=== PATIENT | female | born 1950 | race Caucasian/White ===

== ENCOUNTER 2018-07-15 10:06 | Day surgery (SDC) | payer BC, OTHER ==
[~2018-07-15] VITALS: Ht 162.6 cm; Wt 113.4 kg
[2018-07-15] MEDS ORDERED: BACITRACIN ZINC 15 GM TOPICAL OINTMENT TP ONE (12:55)
[2018-07-15] MEDS ORDERED: SUCCINYLCHOLINE CHLORIDE 20 MG/ML(QUELICIN) IVP ONE (12:55)
[2018-07-15] MEDS ORDERED: LEVOFLOXACIN 500 MG/D5W 100 ML PIGGYBACK IV ONE (12:55)
[2018-07-15] MEDS ORDERED: ROCURONIUM BROMIDE 10 MG/ML (ZEMURON) IV ONE (12:55)
[2018-07-15] MEDS ORDERED: MIDAZOLAM HCL 5 MG/5 ML VIAL IVP ONE (12:55)
[2018-07-15] MEDS ORDERED: SEVOFLURANE 15 MIN GAS INH ONE (12:55)
[2018-07-15] MEDS ORDERED: EPINEPHrine 1 MG/ML AMP IV ONE (12:55)
[2018-07-15] MEDS ORDERED: MUPIROCIN 2% TOPICAL OINTMENT 22 GM TP ONE (12:55)
[2018-07-15] MEDS ORDERED: LIDOCAINE/EPI 1% 1:100000 20 ML VIAL INJ ONE (12:55)
[2018-07-15] MEDS ORDERED: SUGAMMADEX SODIUM 200 MG/2 ML VIAL IV ONE (12:55)
[2018-07-15] MEDS ORDERED: PROPOFOL 200MG/ 20ML VIAL (DIPRIVAN) IV ONE (12:55)
[2018-07-15] MEDS ORDERED: LR 1,000 ML IV.SOLN IV ONE (12:55)
[2018-07-15] MEDS ORDERED: fentaNYL CITRATE 250 MCG/5 ML AMP IV ONE (12:55)
[2018-07-15] MEDS ORDERED: FLUMAZENIL 0.1 MG/ML IVP ONE (12:55)
[2018-07-15] MEDS ORDERED: OXYMETAZOLINE HCL 0.05% NASAL SPRAY NS ONE (12:55)
[2018-07-15] MEDS ORDERED: WATER FOR IRRIGATION,STERILE 1,000 ML IRRIG.SOLN IR ONE (12:55)
[2018-07-15] MEDS ORDERED: LR 1,000 ML IV SCH (14:03)
[2018-07-15] MEDS ORDERED: MORPHINE 4 MG/ML INJ. SYRINGE IVP PRN ×3 (14:15)
[2018-07-15] MEDS ORDERED: METOCLOPRAMIDE HCL 10 MG/2 ML VIAL IVP PRN (14:15)
[2018-07-15] MEDS ORDERED: POLYMYXIN 500,000/BACIT.10,000 UNITS in NS IRR 1 L IR ONE (15:50)
[2018-07-15] MEDS ORDERED: MORPHINE 4 MG/ML INJ. SYRINGE ONE (16:23)
[2018-07-15] MEDS ORDERED: ACETAMINOPHEN 500 MG TABLET PO ONE (17:45)
[2018-07-15] MEDS ORDERED: ACETAMINOPHEN 500 MG TABLET ONE (17:54)
[2018-07-15 17:58] VITALS: BP_SYST 159
== END 2018-07-15 18:27 | disposition home or self-care (01) ==
LOC: SDS 10:06 → SMU 10:07 → SDS 18:27
PROVIDERS: ATTEND Otolaryngology
DX: J34.2 Deviated nasal septum (principal); J32.9 Chronic sinusitis, unspecified; Z79.899 Other long term (current) drug therapy; Z98.890 Other specified postprocedural states; E66.3 Overweight; I10 Essential (primary) hypertension; Z82.49 Family history of ischemic heart disease and other diseases of the circulatory system; Z90.710 Acquired absence of both cervix and uterus; E66.01 Morbid (severe) obesity due to excess calories; G62.9 Polyneuropathy, unspecified; F32.9 Major depressive disorder, single episode, unspecified; M19.90 Unspecified osteoarthritis, unspecified site; J34.89 Other specified disorders of nose and nasal sinuses
CPT/HCPCS: 30140; 30520; 31255; 31267; 87070 ×2; 87075; 87101; 88305; 88311; C9399; J0171; J0330; J1956; J2250; J2270; J2704; J3010; J3490; J7120